=== PATIENT | male | born 1940 | race Caucasian/White ===

== ENCOUNTER → 2019-07-08 | Outpatient (CLI) | payer MEDICARE ==
[~2019-07-08] MED LIST: ATORVASTATIN PO; B 12 PO; CAL PO; FINA5TAB4 PO; LISINOPRIL PO; MAG PO; MAGNESIUM PO; METF500T17 PO; METF850T10 PO; MULT-516 PO; TAMS-11 PO; VITAMIN D3 PO; ZINC PO
[2019-07-08 09:20] LABS: BASOPHILS # (AUTO) 0.02 x10^3/uL (0-0.1); BASOPHILS % (AUTO) 0 % (0-1); EOSINOPHILS # (AUTO) 0.06 x10^3/uL (0-0.4); EOSINOPHILS % (AUTO) 1 % (1-7); LYMPHOCYTES % (AUTO) 18 % (22-44); MD NO; MEAN CORPUSCULAR HEMOGLOBIN 29.6 pg (27.5-34.5); MEAN CORPUSCULAR HGB CONC 33.6 g/dL (33.2-36.2); MONOCYTES # (AUTO) 0.59 x10^3/uL (0.2-0.8); MONOCYTES % (AUTO) 8 % (2-9); NEUTROPHILS # (AUTO) 5.12 x10^3/uL (1.8-6.8); NEUTROPHILS % (AUTO) 72 % (42-75); PLATELET COUNT 235 x10^3/uL (130-400); RED BLOOD COUNT 4.88 x10^6/uL (4.38-5.82); RED CELL DISTRIBUTION WIDTH 13.1 % (9.4-14.8)
[2019-07-08 09:24] LABS: PROTHROMBIN TIME 10.6 Seconds (9.6-11.5)
[2019-07-08 09:27] LABS: ALANINE AMINOTRANSFERASE 32 U/L (12-78); ALBUMIN 3.9 g/dL (3.4-5.0); ANION GAP 5 mmol/L (5-15); CHLORIDE 107 mmol/L (98-107); CREATININE 1.05 mg/dL (0.7-1.3)
[2019-07-08 09:29] LABS: ALKALINE PHOSPHATASE 101 U/L (45-117); BILIRUBIN,TOTAL 0.8 mg/dL (0.2-1.0); TOTAL PROTEIN 8.2 g/dL (6.4-8.2)
[2019-07-08 09:35] LABS: MICROSCOPIC INDICATED
== END | disposition home or self-care (01) ==
LOC: STAR 07-02 09:59
PROVIDERS: ATTEND Urology
DX: Z01.818 Encounter for other preprocedural examination (principal); N40.1 Benign prostatic hyperplasia with lower urinary tract symptoms
CPT/HCPCS: 36415; 80053; 81001; 85025; 85610; 87077; 87086; 93005

== ENCOUNTER 2019-08-01 07:27 | Observation (INO) | payer MEDICARE ==
[~2019-08-01] VITALS: Ht 177.8 cm; Wt 68.0 kg
[2019-08-01] MEDS ORDERED: LACTATED RINGERS 1,000 ML IV SCH (08:34)
[2019-08-01 08:48] VITALS: BP 133/78
[2019-08-01] MEDS ORDERED: SCOPOLAMINE 1MG PATCH TD ONE (08:55)
[2019-08-01] MEDS ORDERED: ACETAMINOPHEN 500 MG TABLET PO ONE (09:00)
[2019-08-01] MEDS ORDERED: FENTANYL PF 250 MCG/5ML ONE (09:03)
[2019-08-01] MEDS ORDERED: MIDAZOLAM 1 MG/ML, 2ML ONE (09:03)
[2019-08-01] MEDS ORDERED: DEXAMETHASONE 4 MG/ML, 1ML ONE (09:05)
[2019-08-01] MEDS ORDERED: LIDOCAINE-MPF 2% ,5ML ONE (09:05)
[2019-08-01] MEDS ORDERED: PROPOFOL 10 MG/ML, 20ML ONE (09:05)
[2019-08-01] MEDS ORDERED: ROCURONIUM 10MG/ML,5ML ONE (09:05)
[2019-08-01] MEDS ORDERED: SUCCINYLCHOLINE 20 MG/ML, 10ML ONE (09:05)
[2019-08-01] MEDS ORDERED: CEFAZOLIN 1,000 MG ONE (09:24)
[2019-08-01] MEDS ORDERED: HALOPERIDOL 5 MG/ML IV PRN (09:30)
[2019-08-01] MEDS ORDERED: LABETALOL 5MG/ML, 20ML IV PRN (09:30)
[2019-08-01] MEDS ORDERED: OXYcodone 5 MG/5 ML ORAL.SOL UDC PO PRN (09:30)
[2019-08-01] MEDS ORDERED: HYDROmorphone 2 MG/ML, 1ML IVPush PRN (09:30)
[2019-08-01] MEDS ORDERED: PROMETHAZINE 12.5 MG SUPP PR PRN (09:30)
[2019-08-01] MEDS ORDERED: MEPERIDINE/PF 25MG/ML,1ML IVPush PRN (09:30)
[2019-08-01] MEDS ORDERED: ALBUTEROL SULFATE 2.5 MG/3 ML NPPB PRN (09:30)
[2019-08-01] MEDS ORDERED: MIDAZOLAM 1 MG/ML, 2ML IV PRN (09:30)
[2019-08-01] MEDS ORDERED: DIAZEPAM 5 MG/ML, 2ML IVPush PRN (09:30)
[2019-08-01] MEDS ORDERED: FENTANYL PF 100 MCG/2ML IV PRN (09:30)
[2019-08-01] MEDS ORDERED: ONDANSETRON ODT 8 MG PO PRN (09:30)
[2019-08-01] MEDS ORDERED: EPHEDRINE 50 MG/ML, 1ML IVPush PRN (09:30)
[2019-08-01] MEDS ORDERED: hydrALAzine 20 MG/ML, 1ML IV PRN (09:30)
[2019-08-01] MEDS ORDERED: ONDANSETRON 2MG/ML, 2ML IV PRN ×2 (09:30→11:00)
[2019-08-01] MEDS ORDERED: PROMETHAZINE 25 MG/ML, 1ML IV PRN (09:30)
[2019-08-01] MEDS ORDERED: ONDANSETRON 2MG/ML, 2ML ONE (10:18)
[2019-08-01] MEDS ORDERED: OXYcodone/APAP 5/325MG TABLET PO PRN (11:00)
[2019-08-01] MEDS: LACTATED RINGERS 1,000 ML IV SCH ×2 (11:00→23:56)
[2019-08-01 12:25] VITALS: BP 120/72
[2019-08-01] MEDS ORDERED: SCOPOLAMINE 1MG PATCH TD SCH (13:00)
[2019-08-01] MEDS: metFORMIN 850 MG TABLET PO SCH (17:14)
[2019-08-01 19:25] VITALS: BP 93/61
[2019-08-02 00:43] VITALS: BP 91/51
[2019-08-02 05:17] VITALS: BP 91/51
[2019-08-02 08:00] VITALS: BP 91/51
[2019-08-02] MEDS: metFORMIN 850 MG TABLET PO SCH ×2 (08:39→16:46)
[2019-08-02] MEDS ORDERED: TAMSULOSIN 0.4 MG CAP.ER.24H PO SCH (09:00)
[2019-08-02] MEDS ORDERED: FINASTERIDE 5 MG TABLET PO SCH (09:00)
[2019-08-02] MEDS ORDERED: ATORVASTATIN 40 MG TABLET PO SCH (09:00)
[2019-08-02] MEDS ORDERED: MULTIVITAMIN 1 TABLET PO SCH (09:00)
[2019-08-02] MEDS ORDERED: LISINOPRIL 5 MG TABLET PO SCH (09:00)
[2019-08-02 13:26] VITALS: BP 109/65
[2019-08-02] MEDS: LACTATED RINGERS 1,000 ML IV SCH (13:40)
[2019-08-04] MEDS ORDERED: SCOPOLAMINE 1MG PATCH TD SCH (08:00)
== END 2019-08-02 18:00 | disposition home or self-care (01) ==
LOC: OUT 07:27 → ORIP 10:36 → 4NE 12:14
PROVIDERS: ADMIT Urology; ATTEND Urology
DX: N40.0 Benign prostatic hyperplasia without lower urinary tract symptoms (principal); I10 Essential (primary) hypertension; E11.9 Type 2 diabetes mellitus without complications; E78.5 Hyperlipidemia, unspecified
CPT/HCPCS: 52648; 82962; G0378; J0330; J0690; J1100; J2250; J2405; J2704; J3010; J3490; J7120